=== PATIENT | female | born 1980 | race Caucasian/White ===

== ENCOUNTER 2017-04-24 08:14 | Emergency (ER) | payer OTHER ==
[~2017-04-24] VITALS: Ht 165.1 cm; Wt 111.4 kg
[2017-04-24 08:44] LABS: HEMATOCRIT 34.8 % (36.0-46.0); MCH 23.3 PG (29.0-34.0); MCHC 30.7 G/DL (30.0-36.0); MCV 75.7 FL (83-99); MEAN PLAT.VOLUME 12.4 uM^3 (9.5-12.4); PLATELET COUNT 249 K/uL (156-360); RBC DIS.WIDTH-CV 16.4 % (11.8-14.6); RBC DIS.WIDTH-SD 44.4 % (39-53)
[2017-04-24 08:57] LABS: CHLORIDE 104 mEq/L (99-109); POTASSIUM 3.8 mEq/L (3.7-5.4); SODIUM 139 mEq/L (136-147)
[2017-04-24 08:59] LABS: GLUCOSE 101 mg/dL (70-99)
[2017-04-24 09:01] LABS: ANION GAP 8 MEQ/L (2-14); TOTAL BILIRUBIN 0.6 mg/dL (0.0-1.0)
[2017-04-24 09:03] LABS: ALKALINE PHOSPHATASE 54 IU/L (3-129); GFR ESTIMATE (CALCULATED) > 59 mL/min/
[2017-04-24 09:04] LABS: UREA NITROGEN (BUN) 7 mg/dL (9-23)
[2017-04-24 09:06] LABS: LIPASE 17 U/L (1.0-51.0)
[2017-04-24 09:12] LABS: QUANTITATIVE HCG < 4.0 MIU/ML
[2017-04-24 09:21] LABS: ADD MIUA? NO; BILIRUBIN NEGATIVE; BLOOD NEGATIVE; COLOR STRAW ((YELLOW)); GLUCOSE (STRIP) NEGATIVE; KETONES NEGATIVE; LEUKOCYTES NEGATIVE; NITRITE NEGATIVE; PROTEIN (STRIP) NEGATIVE; SPECIFIC GRAVITY 1.005 (1.000-1.030); UROBILINOGEN 0.2 MG/DL (0.2-1.0)
[2017-04-24] MEDS ORDERED: BENTYL10 MG PO (11:33)
[2017-04-24] MEDS ORDERED: ZOFRAN ODT4 MG PO (11:33)
[2017-04-24] MEDS ORDERED: PRILOSEC20 MG PO (11:35)
[2017-04-24 11:50] VITALS: BP 138/73
== END 2017-04-24 11:51 | disposition home or self-care (01) ==
LOC: EME 08:14
PROVIDERS: Nurse Practitioner Family
DX: R10.9 Unspecified abdominal pain (principal); R11.2 Nausea with vomiting, unspecified
CPT/HCPCS: 76705; 80053; 81003; 83690; 84702; 85027; 99281; 99285; J2405; J7030

== ENCOUNTER 2017-05-02 14:30 | Outpatient (CLI) | payer OTHER ==
[~2017-05-02] VITALS: Ht 165.1 cm; Wt 106.6 kg
[~2017-05-02 14:30] MED LIST: AMBIEN10 MG PO; BENTYL10 MG PO; OMEPRAZOLE40 M1 PO; PRILOSEC20 MG PO; ZOFRAN ODT4 MG PO; ZOFRAN4 MG PO
[2017-05-02 15:29] LABS: ANION GAP 13 MEQ/L (2-14); CHLORIDE 106 MEQ/L (99-109); GFR ESTIMATE (CALCULATED) > 59 mL/min/; GLUCOSE 85 mg/dL (70-99); POTASSIUM 3.8 MEQ/L (3.7-5.4); SAMPLE HEMOLYSIS CHECK 0; SAMPLE ICTERIC CHECK 0; SAMPLE LIPEMIA CHECK 0; SODIUM 141 MEQ/L (136-147); UREA NITROGEN (BUN) 6 mg/dL (9-23)
[2017-05-02 16:50] LABS: EOSINOPHIL (%) 0.8 % (0-5); HEMATOCRIT 33.6 % (36.0-46.0); INSTRUMENT ABS NEUTROPHIL CT 2.8 K/uL; LYMPHOCYTE COUNT 0.9 K/uL (1.0-2.8); MCH 23.3 PG (29.0-34.0); MCHC 30.7 G/DL (30.0-36.0); MONOCYTE (%) 7.3 % (3-12); MONOCYTE COUNT 0.3 K/uL (0-0.8); NEUTROPHIL (%) 69.9 % (45-76); NEUTROPHIL COUNT 2.8 K/uL (1.8-6.4); PLATELET COUNT 220 K/uL (156-360); RBC DIS.WIDTH-CV 16.2 % (11.8-14.6); RBC DIS.WIDTH-SD 44.5 % (39-53); RED BLOOD COUNT 4.42 M/uL (3.80-5.20)
[2017-05-02 17:26] LABS: DIRECT BILIRUBIN 0.1 mg/dL (0.0-0.3); TOTAL BILIRUBIN 0.7 MG/DL (0.0-1.0)
[2017-05-02 17:32] LABS: ALKALINE PHOSPHATASE 51 IU/L (3-129); LIPASE 17 U/L (1.0-51.0)
[2017-05-02 17:55] LABS: IRON 15 MCG/DL (35-150)
[2017-05-02 18:00] VITALS: BP 130/70
[2017-05-02 18:34] LABS: FERRITIN 6 NG/ML (10-291)
[2017-05-02 19:49] LABS: ADD MIUA? YES; BILIRUBIN NEGATIVE; BLOOD SMALL; COLOR YELLOW ((YELLOW)); GLUCOSE (STRIP) NEGATIVE; KETONES 20; LEUKOCYTES NEGATIVE; NITRITE NEGATIVE; PROTEIN (STRIP) NEGATIVE; SPECIFIC GRAVITY 1.009 (1.000-1.030); UROBILINOGEN 0.2 MG/DL (0.2-1.0)
[2017-05-02 20:02] LABS: BACTERIA RARE /HPF; EPITHELIAL CELLS RARE /HPF; MUCUS TRACE /LPF; RED BLOOD CELLS 0-5 /HPF (0-5); UCUL ADDED? NO; WHITE BLOOD CELLS 0-5 /HPF (0-5)
[2017-05-02 20:25] LABS: AMPHETAMINES QUANT VALUE 0 NG/ML; BARBITUATES QUANT VALUE 0 NG/ML; BENZODIAZEPINES, URINE SCREEN POSITIVE (200 ng/mL); MARIJUANA QUANT VALUE 0 NG/ML; OPIATES QUANTITATIVE VALUE 0 NG/ML; PHENCYCLIDINE QUANT VALUE 0 NG/ML
[2017-05-02 21:01] VITALS: BP 122/70
[2017-05-02 23:11] VITALS: BP 108/61
[2017-05-03 03:04] VITALS: BP 106/66
[2017-05-03 05:44] LABS: HEMATOCRIT 33.6 % (36.0-46.0); MCHC 30.1 G/DL (30.0-36.0); MCV 76.5 FL (83-99); MEAN PLAT.VOLUME 12.5 uM^3 (9.5-12.4); PLATELET COUNT 201 K/uL (156-360); RBC DIS.WIDTH-CV 16.4 % (11.8-14.6); RBC DIS.WIDTH-SD 45.9 % (39-53); RED BLOOD COUNT 4.39 M/uL (3.80-5.20); WHITE BLOOD COUNT 3.4 K/uL (4.1-10.2)
[2017-05-03 06:52] LABS: ALKALINE PHOSPHATASE 43 IU/L (3-129); ANION GAP 9 MEQ/L (2-14); CHLORIDE 110 MEQ/L (99-109); GFR ESTIMATE (CALCULATED) > 59 mL/min/; GLUCOSE 117 mg/dL (70-99); POTASSIUM 3.8 MEQ/L (3.7-5.4); SAMPLE HEMOLYSIS CHECK 0; SAMPLE ICTERIC CHECK 0; SAMPLE LIPEMIA CHECK 0; SODIUM 140 MEQ/L (136-147); TOTAL BILIRUBIN 0.5 MG/DL (0.0-1.0); UREA NITROGEN (BUN) 4 mg/dL (9-23)
[2017-05-03 07:10] VITALS: BP 131/74
[2017-05-03 11:37] VITALS: BP 114/62
[2017-05-03 15:34] VITALS: BP 140/70
[2017-05-03] MEDS ORDERED: REGLAN10 MG PO (15:43)
[2017-05-03] MEDS ORDERED: FEOSOL325 MG PO (15:43)
[2017-05-06 10:35] LABS: INTERNAL CONTROL VALID? YES
== END 2017-05-03 16:30 | disposition home or self-care (01) ==
LOC: AMB 14:30 → 2SOUTH 16:22 → ENRESERV 16:32 → 5WEST 17:39
PROVIDERS: Anesthesiology; Internal Medicine; Physician Assistant Medical
PROC: 0DB98ZX Excision of Duodenum, Via Natural or Artificial Opening Endoscopic, Diagnostic (ICD-10-PCS; principal; 2017-05-03)
DX: R11.2 Nausea with vomiting, unspecified (principal); D50.9 Iron deficiency anemia, unspecified; E66.01 Morbid (severe) obesity due to excess calories; Z68.41 Body mass index [BMI] 40.0-44.9, adult; K21.9 Gastro-esophageal reflux disease without esophagitis; R51 Headache; R42 Dizziness and giddiness; E04.9 Nontoxic goiter, unspecified; Z87.891 Personal history of nicotine dependence
CPT/HCPCS: 70450; 80048; 80053; 80076; 80306 90; 81003; 82607; 82728; 82746; 83540; 83690; 84466; 84703; 85025; 85027; 88305; C9113; G0378; J1100; J1644; J2250; J2405; J2765; J7042

== ENCOUNTER → 2017-05-26 | Outpatient (CLI) | payer OTHER ==
[~2017-05-26] MED LIST changes: +FEOSOL325 MG PO; +REGLAN10 MG PO
== END | disposition home or self-care (01) ==
LOC: NUC 08:37
DX: R11.2 Nausea with vomiting, unspecified (principal); K59.00 Constipation, unspecified; D50.8 Other iron deficiency anemias
CPT/HCPCS: 78226; A9537

== ENCOUNTER 2017-07-30 07:31 | Day surgery (SDC) | payer OTHER ==
[~2017-07-30] VITALS: Ht 165.1 cm; Wt 102.0 kg
[~2017-07-30 07:31] MED LIST changes: +AMBIEN5 MG PO; +IRON325 M1 PO; +ZOFRAN8 MG PO
[2017-07-30 07:55] VITALS: BP 123/58
[2017-07-30] MEDS ORDERED: MOTRIN600 MG PO (11:13)
[2017-07-30] MEDS ORDERED: NORCO 5/3251 TABLET PO (11:13)
[2017-07-30 13:25] VITALS: BP 127/60
[2017-07-30 14:05] VITALS: BP 127/60
== END 2017-07-30 14:14 | disposition home or self-care (01) ==
LOC: SDC 07:31
DX: K80.10 Calculus of gallbladder with chronic cholecystitis without obstruction (principal); N83.201 Unspecified ovarian cyst, right side; K21.0 Gastro-esophageal reflux disease with esophagitis; R11.2 Nausea with vomiting, unspecified; E66.9 Obesity, unspecified; Z68.37 Body mass index [BMI] 37.0-37.9, adult; Z87.891 Personal history of nicotine dependence
CPT/HCPCS: 74300; 88304; J0131; J1100; J1170; J1885; J2250; J2405; J2550; J2710; J2765; J3010; Q0175; S0020; S0074

== ENCOUNTER → 2017-10-15 | Outpatient (CLI) | payer OTHER ==
[~2017-10-15] MED LIST changes: +MOTRIN600 MG PO; +NORCO 5/3251 TABLET PO
== END | disposition home or self-care (01) ==
LOC: NUC 08:21
DX: R11.2 Nausea with vomiting, unspecified (principal); K59.00 Constipation, unspecified; D50.8 Other iron deficiency anemias
CPT/HCPCS: 78264; A9541

== ENCOUNTER 2017-12-01 05:23 | Day surgery (SDC) | payer OTHER ==
[~2017-12-01] VITALS: Ht 165.1 cm; Wt 96.2 kg
[2017-12-01] MEDS ORDERED: MYRBETRIQ25 MG PO (05:52)
[2017-12-01 05:55] VITALS: BP 126/69
[2017-12-01 09:19] VITALS: BP 134/74
[2017-12-01 10:20] VITALS: BP 133/64
== END 2017-12-01 10:39 | disposition home or self-care (01) ==
LOC: SDC 05:23
DX: N92.0 Excessive and frequent menstruation with regular cycle (principal); D50.9 Iron deficiency anemia, unspecified; Z90.49 Acquired absence of other specified parts of digestive tract; Z87.891 Personal history of nicotine dependence
CPT/HCPCS: 88305; J1100; J1170; J1885; J2250; J2405; J2765